=== PATIENT | male | born 1940 | race Caucasian/White ===

== ENCOUNTER → 2017-02-05 | Outpatient (CLI) | payer OTHER ==
[~2017-02-05] MED LIST: GADOBUTROL 10 ML VIAL IVP ONE
== END ==
LOC: FIMAGING 12:58
PROVIDERS: ATTEND Physical Medicine & Rehabilitation
DX: M51.36 Other intervertebral disc degeneration, lumbar region (principal); M51.37 Other intervertebral disc degeneration, lumbosacral region; M54.5 Low back pain; R20.0 Anesthesia of skin
CPT/HCPCS: 70553; 72148; A9585

== ENCOUNTER 2018-11-18 12:28 | Observation (INO) | payer OTHER | END 2018-11-18 19:31 | disposition home or self-care (01) | LOC: F2N 12:28 → F3E 12:39 ==